=== PATIENT | female | born 1960 | race Asian ===

== ENCOUNTER 2017-02-27 03:50 | Emergency (ER) | payer OTHER ==
[~2017-02-27] VITALS: Ht 149.9 cm; Wt 49.9 kg
--- NOTE | 2017-02-27 04:27 | ED CARDIAC/CP/PALPITATIONS ---
History of Present Illness General Chief Complaint: Chest Pain Stated Complaint: CHST PAIN Source: patient, family, old records Exam Limitations: no limitations Vital Signs & Intake/Output Vital Signs & Intake/Output Vital Signs Date Time Temp Pulse Resp B/P Pulse O2 O2 Flow FiO2 Ox Delivery Rate 02/27 0408 Room Air 02/27 0359 96.7 77 16 163/90 97 Room Air Allergies Coded Allergies: aspirin (SOB 02/27/17) Reconcile Medications Famotidine (Pepcid) 20 MG TABLET 1 TAB PO BID gastritis Hyoscyamine Sulfate (Levsin-Sl) 0.125 MG TAB.SUBL 1-2 TAB SL Q4P PRN abd pain Metoclopramide HCl (Reglan) 10 MG TABLET 1 TAB PO 4 TIMES/DAY PRN GERD 30 minutes before meals and bedtime Core Measure Meds Pre-Hospital aspirin (allergic) Triage Note: 56YO FEMALE TO RM 10 FROM TRIAGE VIA WC W/C MIDSTERNAL CP THAT AWOKE HER AT 0100. DENIES ANY RADIATION. Triage Nurses Notes Reviewed? yes Onset: Evening Duration: hour(s):, constant, continues in ED, getting worse Timing: recent history Quality/Severity: moderate, aching, burning Location: central Radiation: epigastric Activities at Onset: sleep Prior Chest Pain/Card Workup: non-cardiac Nitro Today/Relief: no nitro taken today Aspirin Today: no aspirin today Associated Symptoms: heartburn, nausea/vomiting LMP (ages 10-50): post menopausal : No Patient currently breastfeeds: No HPI: Several hours prior to admission patient developed epigastric pain radiating to the substernal area described as achy burning moderate to severe associated with nausea shortness of breath. She reports having the symptoms 2 or 3 times over the last several months. She denies shortness of breath vomiting diarrhea cough headache dysuria rash bleeding palpitations. Past History Travel History Traveled to [place] past 21 day No Medical History Any Pertinent Medical History? see below for history Neurological: NONE EENT: NONE Cardiovascular: hypertension, hyperlipidemia Respiratory: NONE Gastrointestinal: ULCERS Hepatic: NONE Renal: NONE Musculoskeletal: NONE Psychiatric: NONE Endocrine: NONE Blood Disorders: NONE Surgical History Surgical History: non-contributory Psychosocial History What is your primary language Japanese Tobacco Use: Refused to answer ETOH Use: denies use Illicit Drug Use: denies illicit drug use Family History Hx Contributory? No Review of Systems Review of Systems Constitutional: Reports: no symptoms. EENTM: Reports: no symptoms. Respiratory: Reports: see HPI, short of breath. Cardiovascular: Reports: see HPI, chest pain. GI: Reports: see HPI, abdominal pain, nausea. Genitourinary: Reports: no symptoms. Musculoskeletal: Reports: no symptoms. Skin: Reports: no symptoms. Neurological/Psychological: Reports: no symptoms. Hematologic/Endocrine: Reports: no symptoms. Immunologic/Allergic: Reports: no symptoms. All Other Systems: Reviewed and Negative Physical Exam Physical Exam General Appearance: well developed/nourished, alert, awake, anxious, moderate distress Head: atraumatic, normal appearance Eyes: Bilateral: normal appearance, PERRL, EOMI. Ears, Nose, Throat: normal pharynx, normal ENT inspection Neck: normal inspection, supple, full range of motion, no midline tenderness Respiratory: normal breath sounds, chest non-tender, no respiratory distress, quiet respiration, lungs clear Cardiovascular: regular rate/rhythm, normal peripheral pulses, norml femoral pulses equa Peripheral Pulses: 4+ carotid (R), 4+ carotid (L) Gastrointestinal: normal bowel sounds, soft, non-tender, no organomegaly Back: normal inspection, normal range of motion Extremities: normal inspection, normal capillary refill, normal range of motion, no edema Neurologic/Psych: no motor/sensory deficits, awake, alert, oriented x 3, normal gait, normal mood/affect Reflexes: 2+: bicep (R), bicep (L). Skin: intact, normal color, warm/dry Lymphatic: no anterior cervical marly Core Measures ACS in differential dx? No Severe Sepsis Present: No Septic Shock Present: No Progress Differential Diagnosis: costochondritis, hyperkalemia, pancreatitis, pneumonia Plan of Care: Orders Procedure Date/time Status TROPONIN LEVEL 02/28 400 Complete PROTHROMBIN TIME 02/28 400 Complete LIPASE 02/28 400 Complete COMPREHENSIVE METABOLIC PANEL 02/28 400 Complete CBC WITHOUT DIFFERENTIAL 02/28 400 Complete AMYLASE 02/28 400 Complete EKG 02/27 035 Active Laboratory Tests 02/27/17 0402: Anion Gap 11, Estimated GFR > 60, BUN/Creatinine Ratio 25.0, Glucose 150 H, Calcium 9.9, Total Bilirubin 0.5, AST 40 H, ALT 34, Alkaline Phosphatase 38, Troponin I < 0.01, Total Protein 8.0, Albumin 4.5, Globulin 3.5, Albumin/ Globulin Ratio 1.3, Amylase 55, Lipase 259, PT 11.0, INR 1.05, CBC w Diff NO MAN DIFF REQ, RBC 4.62, MCV 75.0 L, MCH 24.3 L, RDW 14.4, MPV 10.1, Gran % 54.7, Lymphocytes % 29.8, Monocytes % 9.4 H, Eosinophils % 5.1 H, Basophils % 1.0, Absolute Granulocytes 2.7, Absolute Lymphocytes 1.5, Absolute Monocytes 0.5, Absolute Eosinophils 0.3, Absolute Basophils 0.1, PUBS MCHC 32.4 L Initial ED EKG: normal axis, normal intervals, normal p-waves, normal QRS complex, normal sinus rhythm, nonspecific ST T wave chg Rhythm Strip: normal sinus rhythm Departure Departure Time of Disposition: 602 Disposition: HOME OR SELF CARE Condition: Stable Clinical Impression Primary Impression: Gastroesophageal reflux Qualifiers: Esophagitis presence: with esophagitis Qualified Code: K21.0 - Gastro-esophageal reflux disease with esophagitis Referrals: RADHA MORALES,MARIELLA Wagner (PCP/Family) MARGARITA WATSON MD Departure Forms: Customer Survey General Discharge Information Prescriptions: Current Visit Scripts Metoclopramide HCl (Reglan) 1 TAB PO 4 TIMES/DAY PRN GERD #30 TAB 30 minutes before meals and bedtime Famotidine (Pepcid) 1 TAB PO BID #60 TAB Hyoscyamine Sulfate (Levsin-Sl) 1-2 TAB SL Q4P PRN abd pain #60 TAB Critical Care Note Critical Care Note Critical Care Time: non-applicable
[2017-02-27 04:33] LABS: ABSOLUTE BASOPHIL COUNT 0.1 /CUMM (0.0-0.2); ABSOLUTE EOSINOPHIL COUNT 0.3 /CUMM (0.0-0.7); ABSOLUTE GRANULOCYTE CT 2.7 /CUMM (1.4-6.5); ABSOLUTE LYMPH COUNT 1.5 /CUMM (1.2-3.4); ABSOLUTE MONOCYTE COUNT 0.5 /CUMM (0.10-0.60); EOSINOPHIL % 5.1 % (0-5); GRANULOCYTE % 54.7 % (42.2-75.2); HEMATOCRIT 34.6 % (37-47); MEAN CORPUSCULAR HGB 24.3 PG (27.0-31.0); MEAN CORPUSCULAR HGB CONC 32.4 G/DL (33.0-37.0); MEAN PLATELET VOLUME 10.1 FL (7.4-10.4); PLATELET COUNT 252 /CUMM (130-400); RBC DISTRIBUTION WIDTH 14.4 % (11.5-14.5); RED BLOOD CELL CT 4.62 /CUMM (4.20-5.40)
--- NOTE | 2017-02-27 05:31 | RADIOLOGY REPORT ---
EXAMINATION: CHEST 1 VIEW CLINICAL INFORMATION: Chest pain. COMPARISON: None. TECHNIQUE: An AP view of the chest is provided. FINDINGS: The cardiac silhouette is not enlarged. The mediastinal and hilar contours are unremarkable. There are neither pleural effusions nor pneumothoraces. There are no consolidations. The osseous structures are unremarkable. IMPRESSION: No evidence for acute disease.
[2017-02-27] MEDS ORDERED: REGLAN10 M1 PO (06:05)
[2017-02-27] MEDS ORDERED: PEPCID20 M1 PO (06:05)
[2017-02-27] MEDS ORDERED: LEVSIN-SL0.125 MG SL (06:05)
[2017-02-27 06:13] VITALS: BP 105/57
== END 2017-02-27 06:14 ==
LOC: ERH 03:50
PROVIDERS: Emergency Medicine
DX: K21.9 Gastro-esophageal reflux disease without esophagitis (principal); R07.89 Other chest pain
CPT/HCPCS: 93005; 93010; 96374; 96375; J2765

== ENCOUNTER 2018-04-24 12:15 | Emergency (ER) | payer OTHER ==
[~2018-04-24] VITALS: Ht 149.9 cm; Wt 48.5 kg
[~2018-04-24 12:15] MED LIST: LEVSIN-SL0.125 MG SL; PEPCID20 M1 PO; REGLAN10 M1 PO
--- NOTE | 2018-04-24 14:08 | ED AMS/SEIZURE/WEAK/DIZZY ---
History of Present Illness General Chief Complaint: Dizziness Stated Complaint: ? VERTIGO/DIZZINESS Source: patient Exam Limitations: no limitations Vital Signs & Intake/Output Vital Signs & Intake/Output Vital Signs Date Time Temp Pulse Resp B/P B/P Pulse O2 O2 Flow FiO2 Mean Ox Delivery Rate 04/24 1752 97.8 60 18 138/66 98 Room Air Room Air 04/24 1608 98.0 56 20 141/63 100 Room Air Room Air 04/24 1225 98.1 65 20 157/78 99 Room Air Allergies Coded Allergies: aspirin (SOB 02/27/17) Reconcile Medications Amlodipine Besylate 5 MG TABLET 1 TAB PO DAILY HEART (Reported) Diazepam (Valium) 2 MG TABLET 1 TAB PO BID Vertigo Famotidine (Pepcid) 20 MG TABLET 1 TAB PO BID gastritis Fenofibrate 160 MG TABLET 1 TAB PO DAILY CHOLESTEROL (Reported) Hyoscyamine Sulfate (Levsin-Sl) 0.125 MG TAB.SUBL 1-2 TAB SL Q4P PRN abd pain Levothyroxine Sodium 25 MCG TABLET 1 TAB PO DAILY AC THYROID (Reported) Metoclopramide HCl (Reglan) 10 MG TABLET 1 TAB PO 4 TIMES/DAY PRN GERD 30 minutes before meals and bedtime Triage Note: PT TO ED C/O FEELING DIZZY SINCE LAST TUESDAY. STATES SHE IS OFF BALANCE WHEN WALKING. C/O PRESSURE IN HEAD AND RIGHT EAR PAIN. Triage Nurses Notes Reviewed? yes HPI: 57 yo F PMH HTN, HLD presenting with vertigo. Dizziness for the last 3-4 days, described as "room spinning", intermittent, balance disturbance without falls or trauma, similar to symptoms "many years ago from a problem with the ear", evaluated by PMD yesterday, started on meclizine without relief. Associated fullness in ears, hyperacusis, occipital head pressure. Denies associated fevers , chills, chest pain, SOB, palpitations, abdominal pain, diarrhea, constipation, urinary Sx, dyarthria, dysphagia, weakness, numbness, or other focal neurologic Sx. . (Keshav MORALES,Edgar) Past History Travel History Traveled to [place] past 21 day No Medical History Any Pertinent Medical History? see below for history Neurological: NONE EENT: NONE Cardiovascular: hypertension, hyperlipidemia Respiratory: NONE Gastrointestinal: ULCERS Hepatic: NONE Renal: NONE Musculoskeletal: NONE Psychiatric: NONE Endocrine: NONE Blood Disorders: NONE Surgical History Surgical History: non-contributory Psychosocial History What is your primary language Kazakh Tobacco Use: Never used ETOH Use: denies use Illicit Drug Use: denies illicit drug use Family History Hx Contributory? Yes (Edgar Parr MD) Review of Systems Review of Systems Constitutional: Reports: no symptoms. EENTM: Reports: no symptoms. Respiratory: Reports: no symptoms. Cardiovascular: Reports: no symptoms. GI: Reports: see HPI. Genitourinary: Reports: no symptoms. Musculoskeletal: Reports: no symptoms. Skin: Reports: no symptoms. Neurological/Psychological: Reports: see HPI. Hematologic/Endocrine: Reports: no symptoms. Immunologic/Allergic: Reports: no symptoms. All Other Systems: Reviewed and Negative (Edgar Parr MD) Physical Exam Physical Exam General Appearance: well developed/nourished, no apparent distress, alert, awake Head: atraumatic Eyes: Bilateral: PERRL, EOMI. Ears, Nose, Throat: moist mucus membranes, Serous TM effusions without TM buldging, erythema, or purulence Neck: normal inspection, full range of motion, no midline tenderness Respiratory: normal breath sounds, lungs clear Cardiovascular: regular rate/rhythm Gastrointestinal: soft, non-tender Extremities: normal range of motion Neurologic/Psych: awake, alert, oriented x 3 Comments: HEENT: Serous TM effusions bilaterally without purulence, erythema, or bulging of TM Neurologic: Cranial nerves II through XII intact as tested, no nystagmus, negative Dicks Hallpike maneuver, [id number] and [id number] testing unremarkable, no pronator drift, motor strength 5 out of 5 throughout, no sensory deficits Core Measures ACS in differential dx? Yes CVA/TIA Diagnosis Yes Sepsis Present: No Sepsis Focused Exam Completed? No (Edgar Parr MD) Progress Differential Diagnosis: arrythmia, alcohol intoxication, anemia, benign positional vertigo, CVA/stroke, dehydration, drug intoxication, encephalitis, electrolyte imbalance, GI bleed, hypoglycemia, hypoxia, intracranial Hem., intracranial mass/tumor, labrynthitis, meningitis, Meniere's disease, migraine MONK, multiple sclerosis, pneumonia, postural hypotension, presyncope, post- traumatic vertigo, sepsis, seizure disorder, subarachnoid Hem., UTI/pyelo, vertebrobasilar insuff Plan of Care: Orders Procedure Date/time Status TROPONIN LEVEL 04/24 1407 Complete CBC WITHOUT DIFFERENTIAL 04/24 140 Complete BASIC METABOLIC PANEL 04/24 140 Complete EKG 04/24 140 Active Laboratory Tests 04/24/18 1432: Anion Gap 12, Estimated GFR > 60, BUN/Creatinine Ratio 21.7, Glucose 149 H, Calcium 10.1, Troponin I < 0.01, CBC w Diff NO MAN DIFF REQ, RBC 4.82, MCV 75.7 L, MCH 24.6 L, MCHC 32.5 L, RDW 13.8, MPV 9.8, Gran % 53.6, Lymphocytes % 34.0 , Monocytes % 8.2, Eosinophils % 3.5, Basophils % 0.7, Absolute Granulocytes 2.5 , Absolute Lymphocytes 1.6, Absolute Monocytes 0.4, Absolute Eosinophils 0.2, Absolute Basophils 0 Physician MDM: 57 yo F PMH HTN, HLD presenting with vertigo. VSS, neurologic exam non-focal. DDx: Peripheral vertigo (PBBV, Menieres, Labrythitis, vestibular neuritis). ECG non-ischemic. Labs including troponin unremarkable. No improvement with Eply manuver, valium given. Given negative [place]-Hallpike and no improvement with meclizine, will evaluate for cerebellar CVA or ICH with CTA head/neck. CTA with 10-20% R carotid stenosis, no signs of CVA or ICH, I discussed the results of the imaging with the patient and her daughter. On re- examination patient symptomatically improved s/p valium, ambulory with an even gait without assistance. Discharged with return precautions, plan for f/u as scheduled with ENT in 1 week. Initial ED EKG: NSR (Keshav MORALES,Edgar) Departure Departure Disposition: HOME OR SELF CARE Condition: Stable Clinical Impression Primary Impression: Vertigo as late effect of cerebrovascular accident (CVA) Referrals: Dominick MORALES,Johnathan Hernandez (PCP/Family) Additional Instructions: Continue meclizine for vertigo. Try valium for vertigo. Follow up with the ENT doctor as scheduled next week. Return to the ED for any new, worsening, or conerning symptoms. Departure Forms: Customer Survey General Discharge Information Prescriptions: Current Visit Scripts Diazepam (Valium) 1 TAB PO BID #10 TAB (Edgar Parr MD) Resident Co-Sign Statement Statement: ED Attending supervision documentation- [] I saw and evaluated the patient. I have also reviewed all the pertinent lab results and diagnostic results. I agree with the findings and the plan of care as documented in the Resident's documentation. [X] I have reviewed the ED Record and agree with the Resident's documentation. [] Additions or exceptions (if any) to the Resident's note and plan are summarized below: [] (Dick Thakur DO)
[2018-04-24 14:48] LABS: ABSOLUTE BASOPHIL COUNT 0 /CUMM (0.0-0.2); ABSOLUTE EOSINOPHIL COUNT 0.2 /CUMM (0.0-0.7); ABSOLUTE GRANULOCYTE CT 2.5 /CUMM (1.4-6.5); ABSOLUTE LYMPH COUNT 1.6 /CUMM (1.2-3.4); ABSOLUTE MONOCYTE COUNT 0.4 /CUMM (0.10-0.60); BASOPHIL % 0.7 % (0.0-2.0); EOSINOPHIL % 3.5 % (0-5); GRANULOCYTE % 53.6 % (42.2-75.2); HEMATOCRIT 36.5 % (37-47); MEAN CORPUSCULAR HGB 24.6 PG (27.0-31.0); MEAN CORPUSCULAR HGB CONC 32.5 G/DL (33.0-37.0); MEAN CORPUSCULAR VOLUME 75.7 FL (81.0-99.0); MEAN PLATELET VOLUME 9.8 FL (7.4-10.4); PLATELET COUNT 325 /CUMM (130-400); RBC DISTRIBUTION WIDTH 13.8 % (11.5-14.5); RED BLOOD CELL CT 4.82 /CUMM (4.20-5.40); WHITE BLOOD CELL COUNT 4.7 /CUMM (4.8-10.8)
[2018-04-24] MEDS ORDERED: FENOFIBRATE160 M1 PO (15:03)
[2018-04-24] MEDS ORDERED: LEVOTHYROXINE25 MCG PO (15:04)
[2018-04-24] MEDS ORDERED: AMLODIPINE BESYL5 M1 PO (15:04)
--- NOTE | 2018-04-24 16:51 | CT SCAN REPORT ---
EXAMINATION: CT ANGIOGRAM NECK AND BRAIN CLINICAL INFORMATION: 57-year-old woman with vertigo. COMPARISON: None. TECHNIQUE: Test bolus sequences followed by intravenous administration 95 mL of Optiray 320. Helical imaging was performed in the axial plane from the thoracic inlet to the skull vertex. Precontrast and delayed postcontrast imaging of the head was also performed. The data was processed at the fiber technologist's workstation for generation of MIP sequences. Angled MIPs and volume rendered reformatted images were also generated at an offline 3D workstation. Stenoses are assessed in accordance with NASCET criteria unless otherwise indicated. DLP: 1388 mGy-cm FINDINGS: Brain: No intracranial mass, hemorrhage, extra-axial collection, or midline shift is apparent. No pathologic intra-axial enhancement or regional oligemia is visualized. The paranasal sinuses remain well aerated. A nonspecific 1 cm hyperdense lesion is seen overlying the left frontal bone, perhaps a small venous varix. Cervical soft tissues and lung apices: Unremarkable Chest CTA: There is a classic 3 vessel configuration of the aortic arch. Proximal arch vessels are non-stenotic. The left vertebral artery is dominant. No significant ostial stenosis is visualized on either side. Neck CTA: Both vertebral arteries are widely patent throughout their extracranial cervical course. Both common and the left internal carotid arteries are normal in course and caliber. There is mild atherosclerotic plaquing at the right carotid bifurcation that leads to 10-20% luminal narrowing. Brain CTA: There is normal opacification of major intracranial arteries. No focal flow-limiting stenosis, discrete proximal large artery occlusion, or saccular intradural aneurysm is identified. Timing of the contrast allows assessment of the major dural venous sinuses, which all opacify normally. IMPRESSION: Mild atherosclerotic plaquing is seen at the right carotid bifurcation without significant stenosis. Otherwise normal CTA of the head and neck.
[2018-04-24] MEDS ORDERED: VALIUM2 M1 PO ×2 (17:15→17:43)
[2018-04-24 17:52] VITALS: BP 138/66
== END 2018-04-24 17:54 ==
LOC: ERH 12:15
PROVIDERS: Student in an Organized Health Care Education/Training Program
DX: R42 Dizziness and giddiness (principal)
CPT/HCPCS: 93005; 93010